=== PATIENT | female | born 1995 | race Caucasian/White ===

== ENCOUNTER 2018-02-22 02:03 | Emergency (ER) | payer OTHER ==
[2018-02-22 02:10] VITALS: BP 115/66; BMI 30.6
--- NOTE | 2018-02-22 02:34 | DR.GENAD ---
HPI - PCP Primary Care Physician: TIMMY - Complaint/Symptoms Chief Complaint:: PT C/O CONTRACTIONS EVERY 3 MINUTES SINCE 1 AM DENIES BLEEDING Self Treatment fo Chief Complaint: G 2 P 1 A 0 - Source History Provided: Patient - Mode of Arrival Mode of Arrival: Ambulatory - Timing Onset of Chief Complaint: 02/22/18 PMH - PMH Past Medical History: No Past Surgical History: Yes Surgical History: Cholecystectomy, Tonsillectomy - Family History History of Family Medical Conditions: No - Social History Does any household member use tobacco: No Alcohol Use: None Do you use any recreational Drugs:: No Lives With: Family Lives Where: Home - infectious screening In the last 2 months have you had wt loss of >10#?: NO Have you had fever, night sweats or hemotysis?: No Have you traveled outside the country in the last 6 months?: No Isolation: Standard PE - Vital Signs Vitals: Temperature 97.8 F Pulse Rate 94 Respiratory Rate 18 Blood Pressure 115/66 O2 Sat by Pulse Oximetry 99 - Discharge Plan Condition: Stable - Follow ups/Referrals Follow ups/Referrals: Cathy Winchester MD [Primary Care Provider] - 3 days - Instructions
[2018-02-22 02:45] LABS: BILIRUBIN,URINE NEGATIVE (NEGATIVE); BLOOD/HEMOGLOBIN,URINE 1+ (NEGATIVE); GLUCOSE, URINE NEGATIVE (NEGATIVE); KETONES,URINE NEGATIVE (NEGATIVE); LEUKOCYTE ESTERASE ,URINE 1+ (NEGATIVE); NITRITES,URINE NEGATIVE (NEGATIVE); PROTEIN,URINE NEGATIVE (NEGATIVE); UROBILINOGEN,URINE NORMAL (NORMAL)
[2018-02-22 02:54] LABS: APPEARANCE,URINE HAZY (CLEAR); COLOR,URINE YELLOW (YELLOW); SQUAMOUS EPITHELIAL CELL,UR MANY /HPF (NEGATIVE)
[2018-02-22 02:55] LABS: BACTERIA,URINE NEGATIVE /HPF (NEGATIVE); SPERM,URINE FEW /HPF (NEGATIVE)
[2018-02-22] MEDS ORDERED: BRETHINE INJ 1 MG VIAL SC ONE (03:38)
[2018-02-22] MEDS ORDERED: NS 1000 ML 1,000 ML ONE ×2 (03:38→04:25)
[2018-02-22] MEDS: NS 1000 ML 1,000 ML IV ONE ×2 (03:45→04:46)
[2018-02-22] MEDS: BRETHINE INJ 1 MG VIAL SC ONE ×2 (03:45→05:05)
[2018-02-22 04:00] LABS: BILIRUBIN,URINE NEGATIVE (NEGATIVE); BLOOD/HEMOGLOBIN,URINE 1+ (NEGATIVE); GLUCOSE, URINE NEGATIVE (NEGATIVE); KETONES,URINE NEGATIVE (NEGATIVE); LEUKOCYTE ESTERASE ,URINE 1+ (NEGATIVE); NITRITES,URINE NEGATIVE (NEGATIVE); PROTEIN,URINE NEGATIVE (NEGATIVE); UROBILINOGEN,URINE NORMAL (NORMAL)
[2018-02-22 04:07] LABS: APPEARANCE,URINE CLEAR (CLEAR); COLOR,URINE YELLOW (YELLOW); SQUAMOUS EPITHELIAL CELL,UR FEW /HPF (NEGATIVE)
[2018-02-22 04:08] LABS: BACTERIA,URINE TRACE /HPF (NEGATIVE)
[2018-02-22] MEDS ORDERED: MACROBID CAP 100 MG EXT REL PO ONE ×2 (05:14→05:27)
== END 2018-02-22 05:39 | disposition home or self-care (01) ==
LOC: ER 02:03
DX: O60.00 Preterm labor without delivery, unspecified trimester (principal); Z3A.00 Weeks of gestation of pregnancy not specified
CPT/HCPCS: 51702; 81001; 87086; 96365; 96367; 96372; 99284; A4222; J3105